=== PATIENT | female | born 1955 | race Caucasian/White ===

== ENCOUNTER → 2016-11-28 | Outpatient (CLI) | payer OTHER | LOC: EXRD 09:59 | DX: M54.5 Low back pain (principal) | CPT/HCPCS: 72100 ==

== ENCOUNTER → 2020-08-19 | Outpatient (CLI) | payer MEDICARE, OTHER ==
[~2020-08-19] MED LIST: ASPIRIN CHEWABL81 MG PO; BENTYL 20MG TAB20 MG PO; CLARITIN10 MG PO; D3-20002000 UNIT PO; KEFLEX CAP 500500 MG PO; KEPPRA500 MG PO; LOPRESSOR50 MG PO; TOPAMAX25 MG PO; TRILEPTAL300 MG/5 M PO; ZANTAC150 MG PO; ZOFRAN ODT 4 MG4 MG SL
== END ==
LOC: US 09:01
DX: E04.1 Nontoxic single thyroid nodule (principal)

== ENCOUNTER → 2021-01-16 | Outpatient (CLI) | payer MEDICARE, OTHER | LOC: KOH-I 08:00 | DX: E04.1 Nontoxic single thyroid nodule (principal); E04.2 Nontoxic multinodular goiter | CPT/HCPCS: 76536 ==

== ENCOUNTER 2021-08-11 15:12 | Emergency (ER) | payer MEDICARE, OTHER ==
[~2021-08-11 15:12] MED LIST changes: -KEPPRA500 MG PO
[2021-08-11 17:00] LABS: HEMOGLOBIN 12.8 gm/dl (12.3-15.3); RED BLOOD COUNT 4.15 M/UL (4.00-5.10); WHITE BLOOD COUNT 6.5 K/UL (4.5-11.0)
== END 2021-08-11 20:28 | disposition home or self-care (01) ==
LOC: ER1 15:12
PROVIDERS: Physician Assistant Medical
DX: E87.1 Hypo-osmolality and hyponatremia (principal); G40.909 Epilepsy, unspecified, not intractable, without status epilepticus; Z96.82 Presence of neurostimulator; Z20.822 Contact with and (suspected) exposure to COVID-19; I10 Essential (primary) hypertension; Z85.038 Personal history of other malignant neoplasm of large intestine
CPT/HCPCS: 70450; 80053; 81001; 84439; 84443; 85025; 85652; 86140; 87086; 99284; J7030; U0002

== ENCOUNTER 2021-08-14 10:05 | Inpatient (IN) | payer MEDICARE, OTHER ==
[~2021-08-14] VITALS: Ht 157.5 cm; Wt 115.7 kg
[2021-08-14] MEDS ORDERED: KEPPRA XR500 MG PO (12:12)
[2021-08-14] MEDS ORDERED: TRILEPTAL600 MG PO ×2 (12:14→19:25)
[2021-08-14 12:38] LABS: HEMOGLOBIN 12.7 gm/dl (12.3-15.3); RED BLOOD COUNT 4.2 M/UL (4.00-5.10); WHITE BLOOD COUNT 6.6 K/UL (4.5-11.0)
[2021-08-14] MEDS ORDERED: COREG25 MG PO (19:23)
[2021-08-14] MEDS ORDERED: FLONASE ALLER15.8 ML (19:25)
[2021-08-14] MEDS ORDERED: CLARITIN10 MG PO (19:26)
[2021-08-14] MEDS ORDERED: HYDRALAZINE HCL50 MG PO (19:26)
[2021-08-14] MEDS ORDERED: PROTONIX40 MG PO (19:27)
[2021-08-14] MEDS ORDERED: ALDACTONE 25MG25 MG PO (19:28)
[2021-08-17] MEDS ORDERED: HYDRALAZINE HCL50 MG PO (10:48)
== END 2021-08-17 12:26 | disposition home or self-care (01) | DRG 641 ==
LOC: ER1 10:05 → CDU 18:38 → MED SURG 4 18:38
PROVIDERS: Internal Medicine; Internal Medicine Nephrology; Physician Assistant; ADMIT Internal Medicine
DX: E87.1 Hypo-osmolality and hyponatremia (principal); Z68.42 Body mass index [BMI] 45.0-49.9, adult; Z20.822 Contact with and (suspected) exposure to COVID-19; E87.2 Acidosis; R63.1 Polydipsia; N18.30 Chronic kidney disease, stage 3 unspecified; E87.8 Other disorders of electrolyte and fluid balance, not elsewhere classified; E66.01 Morbid (severe) obesity due to excess calories; G43.909 Migraine, unspecified, not intractable, without status migrainosus; I12.9 Hypertensive chronic kidney disease with stage 1 through stage 4 chronic kidney disease, or unspecified chronic kidney disease; G40.909 Epilepsy, unspecified, not intractable, without status epilepticus; Z79.82 Long term (current) use of aspirin; Z79.899 Other long term (current) drug therapy
CPT/HCPCS: 36415; 80048; 80183; 80307; 82436; 82533; 83930; 83935; 84133; 84300; 84439; 84443; 85025; 93005; 96372; 99284; G0378; J1644; J2405; J7030; U0002

== ENCOUNTER 2022-04-28 13:00 | Inpatient (IN) | payer MEDICARE, OTHER ==
[~2022-04-28] VITALS: Ht 157.5 cm; Wt 118.1 kg
[~2022-04-28 13:00] MED LIST changes: +ADULT LOW DOSE81 MG PO; +ALDACTONE 25MG25 MG PO; -ASPIRIN CHEWABL81 MG PO; +COREG25 MG PO; +FLONASE ALLER15.8 ML; +HYDRALAZINE HCL50 MG PO; +KEPPRA XR500 MG PO; +PROTONIX40 MG PO; -TOPAMAX25 MG PO; +TOPAMAX50 MG PO; +TRILEPTAL600 MG PO
[2022-04-28 14:30] LABS: HEMOGLOBIN 11.1 gm/dl (12.3-15.3); RED BLOOD COUNT 3.73 M/UL (4.00-5.10); WHITE BLOOD COUNT 5.5 K/UL (4.5-11.0)
[2022-04-28] MEDS ORDERED: APTIOM800 MG PO (16:22)
[2022-04-28] MEDS ORDERED: LORATADINE10 MG PO (16:23)
[2022-04-28] MEDS ORDERED: ALDACTONE 25MG25 MG PO (16:23)
[2022-04-28] MEDS ORDERED: HYDRALAZINE HCL50 MG PO (16:24)
[2022-04-28 18:33] LABS: BUN/CREATININE RATIO 24 (0-10)
[2022-04-28 19:16] LABS: BUN/CREATININE RATIO 25 (0-10)
[2022-04-28 22:41] LABS: BUN/CREATININE RATIO 21 (0-10)
[2022-04-29 07:09] LABS: HEMOGLOBIN 10.9 gm/dl (12.3-15.3); RED BLOOD COUNT 3.61 M/UL (4.00-5.10); WHITE BLOOD COUNT 6.6 K/UL (4.5-11.0)
[2022-04-29 07:28] LABS: BUN/CREATININE RATIO 18 (0-10)
[2022-04-29 10:28] LABS: BUN/CREATININE RATIO 18 (0-10)
[2022-04-30 03:32] LABS: HEMOGLOBIN 11.8 gm/dl (12.3-15.3); RED BLOOD COUNT 3.97 M/UL (4.00-5.10); WHITE BLOOD COUNT 5.6 K/UL (4.5-11.0)
[2022-04-30 03:54] LABS: BUN/CREATININE RATIO 24 (0-10)
[2022-05-01 06:49] LABS: HEMOGLOBIN 11.9 gm/dl (12.3-15.3); RED BLOOD COUNT 3.98 M/UL (4.00-5.10)
[2022-05-01 06:53] LABS: WHITE BLOOD COUNT 8.6 K/UL (4.5-11.0)
[2022-05-01] MEDS ORDERED: AMIODARONE HCL100 MG PO (15:38)
[2022-05-01] MEDS ORDERED: ELIQUIS 5 MG TAB5 MG PO (15:38)
--- NOTE | 2022-05-01 16:54 | NUR ---
ATTEMPTED TO CONTACT DR. DIALLO AT 1650 AND WAS UNSUCCESSFUL. WILL ATTEMPT TO CONTACT AGAIN.
== END 2022-05-01 19:27 | disposition home or self-care (01) | DRG 641 ==
LOC: ER1 13:00 → CDU 16:08 → PROG CARE 16:08
PROVIDERS: Physician Assistant Medical; ADMIT Internal Medicine
PROC: B24BZZZ Ultrasonography of Heart with Aorta (ICD-10-PCS; principal; 2022-04-29)
DX: E87.1 Hypo-osmolality and hyponatremia (principal); I13.0 Hypertensive heart and chronic kidney disease with heart failure and stage 1 through stage 4 chronic kidney disease, or unspecified chronic kidney disease; Z68.42 Body mass index [BMI] 45.0-49.9, adult; R63.1 Polydipsia; R00.1 Bradycardia, unspecified; G40.909 Epilepsy, unspecified, not intractable, without status epilepticus; I48.91 Unspecified atrial fibrillation; I50.9 Heart failure, unspecified; E66.01 Morbid (severe) obesity due to excess calories; G43.909 Migraine, unspecified, not intractable, without status migrainosus; K21.9 Gastro-esophageal reflux disease without esophagitis; N18.30 Chronic kidney disease, stage 3 unspecified; R11.2 Nausea with vomiting, unspecified; Z96.82 Presence of neurostimulator; Z79.01 Long term (current) use of anticoagulants; Z79.82 Long term (current) use of aspirin; Z82.49 Family history of ischemic heart disease and other diseases of the circulatory system
CPT/HCPCS: ECHO; 36415; 71045; 80048; 80053; 80076; 81001; 82550; 82553; 82607; 83036; 83540; 83550; 83690; 83735; 84100; 84295; 84439; 84443; 84484; 85025; 85027; 85730; 93005; 93306; 96374; 96375; 96376; 99285; C9113; J1644; J1650; J2270; J2405; J2765; J3475; Q9967; U0002